=== PATIENT | male | born 1980 | race Caucasian/White ===

== ENCOUNTER 2018-03-13 10:21 | Emergency (ER) | payer OTHER ==
[~2018-03-13] VITALS: Ht 172.7 cm; Wt 91.4 kg
[2018-03-13 10:32] VITALS: BP 139/88
--- NOTE | 2018-03-13 10:35 | NUR ---
PT AMBULATES TO BED 6, REPORT GIVEN TO DOMENICA CASTANEDA
--- NOTE | 2018-03-13 10:49 | NUR ---
ERMD AT BEDSIDE
[2018-03-13] MEDS ORDERED: LIDOCAINE 1% 500 MG/50 ML VIAL INJ SCH (10:55)
[2018-03-13] MEDS ORDERED: LIDOCAINE MPF 1% - **ER/OR** 10 ML ONE (11:22)
--- NOTE | 2018-03-13 11:24 | NUR ---
Lidocaine given to DR Fields.
[2018-03-13 11:51] VITALS: BP 128/79
--- NOTE | 2018-03-13 11:52 | NUR ---
Patient discharged with v/s stable. Written and verbal after care instructions given and explained. Patient alert, oriented and verbalized understanding of instructions. Ambulatory with steady gait. All questions addressed prior to discharge. ID band removed. Patient advised to follow up with PMD. Rx of pepcid,zofran,naproxyn, given. Patient educated on indication of medication including possible reaction and side effects. Opportunity to ask questions provided and answered.
== END 2018-03-13 11:52 | disposition home or self-care (01) ==
LOC: MED 10:21
DX: M54.81 Occipital neuralgia (principal)
CPT/HCPCS: 99283; J2001

== ENCOUNTER 2018-04-03 12:23 | Emergency (ER) | payer OTHER ==
[~2018-04-03] VITALS: Ht 172.7 cm; Wt 95.7 kg
[2018-04-03 12:32] VITALS: BP 172/98
--- NOTE | 2018-04-03 12:39 | NUR ---
notified er md olsen of patient status
--- NOTE | 2018-04-03 12:40 | NUR ---
PT AMBULATES TO BED 11
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
--- NOTE | 2018-04-03 13:01 | NUR ---
Patient being evaluated by physician at bedside.
[2018-04-03 14:14] VITALS: BP 155/97
--- NOTE | 2018-04-03 14:14 | NUR ---
Patient discharged with v/s stable. Written and verbal after care instructions given and explained. Patient verbalized understanding. Ambulatory with steady gait. All questions addressed prior to discharge. Advised to follow up with PMD.
== END 2018-04-03 14:14 | disposition home or self-care (01) ==
LOC: MED 12:23
DX: S09.8XXA Other specified injuries of head, initial encounter (principal); F07.81 Postconcussional syndrome; Z88.0 Allergy status to penicillin; W10.9XXA Fall (on) (from) unspecified stairs and steps, initial encounter; Y93.89 Activity, other specified; Y99.8 Other external cause status; Y92.099 Unspecified place in other non-institutional residence as the place of occurrence of the external cause
CPT/HCPCS: 70450; 81002; 99284

== ENCOUNTER 2018-10-24 12:53 | Emergency (ER) | payer OTHER ==
[~2018-10-24] VITALS: Ht 175.3 cm; Wt 81.6 kg
[2018-10-24 12:59] VITALS: BP 145/85
--- NOTE | 2018-10-24 14:43 | NUR ---
pt and left, stated will return later or tomorrow
== END 2018-10-24 14:43 | disposition left against medical advice (07) ==
LOC: MED 12:53
DX: F10.239 Alcohol dependence with withdrawal, unspecified (principal); Z53.21 Procedure and treatment not carried out due to patient leaving prior to being seen by health care provider

== ENCOUNTER 2018-12-09 04:44 | Emergency (ER) | payer MEDICAID, OTHER ==
[~2018-12-09] VITALS: Ht 172.7 cm; Wt 79.4 kg
[2018-12-09 04:44] VITALS: BP 140/92
--- NOTE | 2018-12-09 04:44 | NUR ---
Pt transfered from [facility] to bed 7 with vss.
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
[2018-12-09] MEDS ORDERED: MORPHINE SULFATE 4 MG/ML SYR IVP ONE (05:20)
[2018-12-09 06:20] VITALS: BP 163/99
--- NOTE | 2018-12-09 06:20 | NUR ---
Patient discharged with v/s stable. Written and verbal after care instructions given and explained. Patient alert, oriented and verbalized understanding of instructions. Ambulatory with crutch assist. All questions addressed prior to discharge. ID band removed. Patient advised to follow up with PMD. Rx of [place] given. Patient educated on indication of medication including possible reaction and side effects. Opportunity to ask questions provided and answered.
== END 2018-12-09 06:20 | disposition home or self-care (01) ==
LOC: MED 04:44
DX: M25.562 Pain in left knee (principal); Z88.0 Allergy status to penicillin
CPT/HCPCS: 29505; 73562; 96374; 99283; J2270

== ENCOUNTER 2019-06-22 07:33 | Emergency (ER) | payer MEDICAID, OTHER ==
[~2019-06-22] VITALS: Ht 172.7 cm; Wt 87.1 kg
[2019-06-22 07:36] VITALS: BP 152/94
--- NOTE | 2019-06-22 07:40 | NUR ---
PT BIBA FROM [facility] W/ C/O EPIGASTRIC PAIN X5 HRS. DENIES N/V/D. PT APPEARED TO BE ANXIOUS UPON AMBULANCE ARRIVAL. PT STATES 5/10 SHARP ABD PAIN AT THIS TIME. RR EVEN AND UNLABORED. ABD SOFT, ROUND, NONTENDER. LUNG VAZQUEZ CLEAR. PT STATES HE USED METH X2 DAYS LAST USE AT 0200. PT IN BED CALM, VSS AT THIS TIME. MEDHX: WITHDRAWAL SEIZURES ALLERGIES: PENICILLIN
[2019-06-22 07:45] VITALS: BP 152/94
--- NOTE | 2019-06-22 07:45 | NUR ---
PATIENT LEFT WITHOUT BEING SEEN BY DR. AWAN. NO FURTHER CARE PROVIDED FOR PATIENT.
== END 2019-06-22 07:45 | disposition left against medical advice (07) ==
LOC: MED 07:33
DX: R10.13 Epigastric pain (principal); F41.9 Anxiety disorder, unspecified; F15.90 Other stimulant use, unspecified, uncomplicated; Z53.21 Procedure and treatment not carried out due to patient leaving prior to being seen by health care provider

== ENCOUNTER 2019-06-22 14:59 | Emergency (ER) | payer MEDICAID, OTHER ==
[~2019-06-22] VITALS: Ht 172.7 cm; Wt 81.6 kg
[2019-06-22 15:05] VITALS: BP 160/90
== END 2019-06-22 15:15 | disposition left against medical advice (07) ==
LOC: MED 14:59
DX: F60.0 Paranoid personality disorder (principal); F15.90 Other stimulant use, unspecified, uncomplicated; Z53.21 Procedure and treatment not carried out due to patient leaving prior to being seen by health care provider

== ENCOUNTER 2019-08-31 06:45 | Emergency (ER) | payer MEDICAID | END 2019-08-31 08:40 | disposition home or self-care (01) | LOC: MED 06:45 | DX: R04.0 Epistaxis (principal) | CPT/HCPCS: 70486; 99281; 99284 ==